=== PATIENT | male | born 1950 | race Caucasian/White ===

== ENCOUNTER 2017-11-18 12:02 | Observation (INO) ==
--- NOTE | 2017-11-18 14:04 | Emergency Department Note ---
Disposition Clinical Impression: Ascites of liver Liver failure Qualifiers: Liver failure chronicity: unspecified chronicity Hepatic coma status: without hepatic coma Qualified Code(s): K72.90 - Hepatic failure, unspecified without coma Right otitis media Qualifiers: Otitis media type: suppurative Chronicity: acute Recurrence: not specified as recurrent Spontaneous tympanic membrane rupture: without spontaneous rupture Qualified Code(s): H66.001 - Acute suppurative otitis media without spontaneous rupture of ear drum, right ear Disposition: Admitted As Inpatient Condition: Serious Referrals: Delano Haro MD [Partnered Physician] - Forms: ED Satisfaction Letter, Work/School Release Time of Disposition: 17:42 Abdominal Pain HPI - General Chief Complaint: ED Abdominal Pain Stated Complaint: abnormal xray Time Seen by Provider: 11/18/17 12:51 Source: patient Mode of arrival: ambulatory Limitations: no limitations Nursing Notes Reviewed: Yes Vital Signs Reviewed: Yes - History of Present Illness HPI Narrative: 66-year-old male presents complaining of abdominal pain and distention, states his 3 of 10 diffuse abdominal pain, shortness of breath and leg swelling. He also complains of itching, hemorrhoids, and right ear pain. He was diagnosed at the urgent care with a right-sided otitis, they are concerned about his abdominal pain and distention states that him to the ER for further evaluation, he has no known history of hepatitis, drink in his youth but states that he only has a beer occasionally every couple weeks, patient denies history of liver failure, patient states he does take Tylenol 2-3 650 mg extra strength daily for back pain. She denies melena, he has had some intermittent bleeding with hemorrhoids, patient states that his abdominal pain so she was some nausea , feels like his abdomen is pushing on his lungs, he never had a paracentesis ever had abdominal surgery in the past. Pt Subjective Complaint: abdominal pain Onset (ago): week(s) Consistency: intermittent Location: diffuse Pain Severity: moderate Pain Scale: 7 Quality: cramping, fullness Radiation: none Improves with: nothing Worsens with: nothing Associated symptoms: Reports: nausea, diarrhea. Denies: vomiting, fever, chills , dysuria, hematemesis, hematochezia, melena Treatments prior to arrival: none - Related Data Home Medications Medication Instructions Recorded Confirmed Acarbose [Precose] 50 mg PO BID 11/18/17 11/18/17 Ezetimibe/Simvastatin [Vytorin 1 each PO DAILY 11/18/17 11/18/17 10-40 mg Tablet] Lisinopril [Zestril] 10 mg PO DAILY 11/18/17 11/18/17 Pioglitazone HCl [Pioglitazone HCl] 30 mg PO DAILY 11/18/17 11/18/17 metFORMIN 11/18/17 Allergies Allergy/AdvReac Type Severity Reaction Status Date / Time No Known Allergies Allergy Verified 11/18/17 12:07 All systems ED: reviewed and negative except as stated. Review of Systems: As Per HPI Constitutional: Denies: fever, chills Eyes: Denies: eye pain ENT ED: Denies: ear pain Cardiovascular: Denies: chest pain, palpitations Respiratory: Denies: cough, dyspnea Gastrointestinal: Reports: as per HPI, abdominal pain, nausea, diarrhea. Denies : vomiting, hematemesis Genitourinary: Denies: urgency, dysuria Musculoskeletal: Denies: back pain, neck pain Integumentary: Reports: as per HPI, pruritus. Denies: rash, abrasion Abdominal Pain PMH - Past Medical History Medical history: Reports: diabetes, hyperlipidemia, hypertension, other Male Surgical History: Reports: no surgical history Psychiatric history: Reports: no psych history - Social History Smoking status: Never smoker Alcohol use: Reports: none Physical Exam Constitutional: alert and oriented, in NAD, vital signs reviewed and wnl HEENT: NCAT, sclera icteric right ear with a suppurative otitis media possible TM perforation difficult to visualize Neck: normal inspection, neck is supple, trachea midline Resp: normal chest inspection, CTA bilaterally, no resp distress CV: RRR, no m/g/r +3 pitting edema bilateral lower extremities GI: Severe abdominal distention with fluid wave, hepatosplenomegaly is present, although difficult to palpate, patient with diffuse mild tenderness to palpation. Back: normal inspection, negative CVA bilaterally, no tenderness to palpation Neuro: A&O3, no gross motor or sensory deficits bilaterally MSK: normal inspection, bilateral UE and LE with normal ROM Skin: Pruritus, mild jaundice - General Limitations: no limitations General appearance: alert, in no apparent distress Course Course Narrative: 64-year-old male with signs and symptoms of liver failure, cirrhosis, unknown etiology although likely possibly due to chronic Tylenol toxicity, patient has no current other etiologies could be hepatitis, he is a full workup CBC EP, hepatic panel, ammonia, coagulation studies. - Reevaluation(s) Reevaluation #1: His lab work is surprisingly unremarkable, he has normal bilirubin, but he complains of pruritus, the patient also had evidence of a right otitis we will start him on Augmentin, given his concerning findings, for severe abdominal ascites, esophageal varices, he likely has liver failure, plan is for paracentesis, diagnostic and therapeutic with interventional radiology admission to medicine service I spoke with the GI physician Dr. Aparicio who agrees to consult on the patient's care. Plan for admission to hospital follow paracentesis results. Time: 17:40 Reevaluation #2: Admitted to Dr Hsu Vital Signs Temperature 98.2 F 11/18/17 12:04 Pulse Rate 89 11/18/17 12:04 Respiratory Rate 18 11/18/17 12:04 Blood Pressure 163/75 11/18/17 12:04 O2 Sat by Pulse Oximetry 100 11/18/17 12:04 Temperature 98.2 F 11/18/17 12:04 Pulse Rate 88 11/18/17 16:57 Respiratory Rate 18 11/18/17 12:04 Blood Pressure 150/90 11/18/17 16:57 O2 Sat by Pulse Oximetry 98 11/18/17 16:57 Oxygen Delivery Oxygen Delivery Room Air Abdominal Pain - MDM Narrative Medical decision making narrative: 66-year-old male with unknown liver failure, severe abdominal ascites needs paracentesis, further workup and inpatient setting likely will need hepatitis profile, added acetaminophen level, although he has chronic use since likely be low he only took 2 pills earlier this morning. I recommended no more acetaminophen, Augmentin for the ear infection, admission for possible paracentesis and further studies GI consultation as further recommendations GI physician will see the patient inpatient further workup by hospitalist - Differential Diagnosis Differential Diagnosis: Likely: abdominal pain non-specific, acute appendicitis , calculus of kidney, constipation, diverticulitis, diverticulosis - Medical Records Medical records reviewed: Yes I reviewed the patient's medical records. - Lab Data Lab results reviewed: Yes I reviewed the patient's lab results. Result diagrams: 11/18/17 14:10 11/18/17 14:10 Lab Results 11/18/17 11/18/17 11/18/17 Range/Units 14:10 14:10 14:10 WBC 3.0 L (4.3-11.1) K/mcL RBC 3.51 L (4.19-5.50) M/mcL Hgb 9.9 L (12.9-16.9) g/dL Hct 32.7 L (37.5-50.1) % MCV 93.2 (83.0-100.0) fL MCH 28.2 (28.0-33.3) pg MCHC 30.3 L (31.6-35.5) g/dL RDW 16.0 H (11.5-14.5) % Plt Count 81 L (140-400) K/mcL MPV 10.5 (9.4-12.4) fL Immature Gran % 0.3 (0-4) % Seg Neutrophils % 75.9 % Lymphocytes % 11.7 % Monocytes % 8.4 % Eosinophils % 3.0 % Basophils % 0.7 % Neutrophils # 2.3 (1.6-8.9) K/mcL Lymphocytes # 0.4 L (0.6-4.6) K/mcL Monocytes # 0.3 (0.0-1.3) K/mcL Eosinophils # 0.1 (0.0-0.6) K/mcL Basophils # 0.0 (0.0-0.2) K/mcL Platelet Estimate Slight Decrease L (Normal) PT 12.2 H (9.4-12.1) Seconds INR 1.1 APTT 29.3 (26.0-36.0) Seconds Sodium 141 (136-145) mEq/L Potassium 4.1 (3.5-5.1) mEq/L Chloride 107 (98-107) mEq/L Carbon Dioxide 28 (23-29) mEq/L BUN 20 (8-23) mg/dL Creatinine 0.84 (0.70-1.30) mg/dL Est GFR ( Amer) > 60 (> 60) Est GFR (Non-Af Amer) > 60 (> 60) BUN/Creatinine Ratio 24 (6-26) Glucose 203 H (70-105) mg/dL Calculated Osmolality 300 (280-300) Calcium 8.9 (8.6-10.3) mg/dL Total Bilirubin 0.7 (0.3-1.0) mg/dL Direct Bilirubin 0.2 (0.0-0.2) mg/dL Indirect Bilirubin 0.5 (0.0-1.2) mg/dL AST 39 (13-39) Units/L ALT 25 (7-52) Units/L Alkaline Phosphatase 94 (34-104) Units/L Ammonia (16-53) mcmol/L Serum Total Protein 6.7 (6.4-8.9) g/dL Albumin 3.4 L (3.5-5.7) g/dL Globulin 3.3 (2.4-3.5) g/dL Albumin/Globulin Ratio 1.0 L (1.1-2.2) Lipase 35 (11-82) Units/L Urine Color (Yellow) Urine Clarity (Clear) Urine pH (5.0-8.0) pH Units Ur Specific [place] (1.010-1.025) Urine Protein (Neg-Trace) mg/dL Urine Glucose (UA) (Normal) mg/dL Urine Ketones (Negative) mg/dL Urine Blood (Negative) Urine Nitrite (Negative) Urine Bilirubin (Negative) Urine Urobilinogen (Normal) mg/dL Ur Leukocyte Esterase (Negative) Urine Microscopic RBC (0-3) per hpf Urine Microscopic WBC (0-3) per hpf Ur Squamous Epith Cells (None-Few) per lpf Ur Culture Indicated? (NO) 11/18/17 11/18/17 Range/Units 14:10 14:20 WBC (4.3-11.1) K/mcL RBC (4.19-5.50) M/mcL Hgb (12.9-16.9) g/dL Hct (37.5-50.1) % MCV (83.0-100.0) fL MCH (28.0-33.3) pg MCHC (31.6-35.5) g/dL RDW (11.5-14.5) % Plt Count (140-400) K/mcL MPV (9.4-12.4) fL Immature Gran % (0-4) % Seg Neutrophils % % Lymphocytes % % Monocytes % % Eosinophils % % Basophils % % Neutrophils # (1.6-8.9) K/mcL Lymphocytes # (0.6-4.6) K/mcL Monocytes # (0.0-1.3) K/mcL Eosinophils # (0.0-0.6) K/mcL Basophils # (0.0-0.2) K/mcL Platelet Estimate (Normal) PT (9.4-12.1) Seconds INR APTT (26.0-36.0) Seconds Sodium (136-145) mEq/L Potassium (3.5-5.1) mEq/L Chloride (98-107) mEq/L Carbon Dioxide (23-29) mEq/L BUN (8-23) mg/dL Creatinine (0.70-1.30) mg/dL Est GFR ( Amer) (> 60) Est GFR (Non-Af Amer) (> 60) BUN/Creatinine Ratio (6-26) Glucose (70-105) mg/dL Calculated Osmolality (280-300) Calcium (8.6-10.3) mg/dL Total Bilirubin (0.3-1.0) mg/dL Direct Bilirubin (0.0-0.2) mg/dL Indirect Bilirubin (0.0-1.2) mg/dL AST (13-39) Units/L ALT (7-52) Units/L Alkaline Phosphatase (34-104) Units/L Ammonia 33 (16-53) mcmol/L Serum Total Protein (6.4-8.9) g/dL Albumin (3.5-5.7) g/dL Globulin (2.4-3.5) g/dL Albumin/Globulin Ratio (1.1-2.2) Lipase (11-82) Units/L Urine Color Yellow (Yellow) Urine Clarity Clear (Clear) Urine pH 7.5 (5.0-8.0) pH Units Ur Specific [place] 1.022 (1.010-1.025) Urine Protein 30 H (Neg-Trace) mg/dL Urine Glucose (UA) Normal (Normal) mg/dL Urine Ketones Trace H (Negative) mg/dL Urine Blood Large H (Negative) Urine Nitrite Negative (Negative) Urine Bilirubin Negative (Negative) Urine Urobilinogen Normal (Normal) mg/dL Ur Leukocyte Esterase Trace H (Negative) Urine Microscopic RBC 15-30 H (0-3) per hpf Urine Microscopic WBC 3-5 H (0-3) per hpf Ur Squamous Epith Cells Few (None-Few) per lpf Ur Culture Indicated? YES A (NO) - Radiology Data Radiology results reviewed: Yes I reviewed the patient's radiology results. Abdomen/Pelvis CT 11/18/17 14:53 IMPRESSION: Cirrhotic liver morphology with features of portal venous hypertension, including large volume abdominal ascites, mesenteric edema, portosystemic collaterals (including paraesophageal and esophageal varices), marked splenomegaly and generalized soft tissue edema. Normal gallbladder and bile ducts. Diverticulosis without evidence of diverticulitis. Left nephrolithiasis. No right nephrolithiasis or evidence of obstructive uropathy. A 6 mm solid nodule in the right lower lobe, outside the field of view on comparison exams from 2006. Recommend dedicated CT chest for further evaluation. D/ / 11/18/2017 15:41:54 Pedro Iyer / Rachel Watson Interpreting Provider: Pedro Iyer
--- NOTE | 2017-11-18 14:16 | Emergency Department Note ---
START Narrative - START START: I examined this patient and my medical decision-making was reviewed with the Resident Physician. I agree with the documented findings, disposition and treatment plan as described except to the extent set forth below. 66-year-old male presents emergency room for abdominal distention. ongoing for many months. Seems to be getting worse. Patient denies any history of this in the past. He denies any liver problems. pt is a known diabetic. on diabetic meds. no fevers. pt will need to be worked up for this hepatosplenomegaly. ct scan, labs,
[2017-11-18 14:22] LABS: Basophils % 0.7 %; Eosinophils # 0.1 K/mcL (0.0-0.6); Hematocrit 32.7 % (37.5-50.1); Hemoglobin 9.9 g/dL (12.9-16.9); Immature Granulocytes % 0.3 % (0-4); Lymphocytes # 0.4 K/mcL (0.6-4.6); Lymphocytes % 11.7 %; Mean Corpuscular HGB Conc 30.3 g/dL (31.6-35.5); Mean Corpuscular Hemoglobin 28.2 pg (28.0-33.3); Mean Corpuscular Volume 93.2 fL (83.0-100.0); Mean Platelet Volume 10.5 fL (9.4-12.4); Monocytes # 0.3 K/mcL (0.0-1.3); Monocytes % 8.4 %; Neutrophils # 2.3 K/mcL (1.6-8.9); Platelet Count 81 K/mcL (140-400); Red Blood Count 3.51 M/mcL (4.19-5.50); Segmented Neutrophils % 75.9 %
[2017-11-18 14:23] LABS: Platelet Estimate Slight Decrease (Normal)
[2017-11-18 14:27] LABS: INR 1.1; Prothrombin Time 12.2 Seconds (9.4-12.1)
[2017-11-18 14:29] LABS: Activated Partial Thrombo Time 29.3 Seconds (26.0-36.0)
[2017-11-18 14:47] LABS: Bilirubin,Urine Negative (Negative); Clarity,Urine Clear (Clear); Color,Urine Yellow (Yellow); Glucose,Urine (UA) Normal (Normal); Ketones,Urine Trace mg/dL (Negative); Specific Gravity,Urine 1.022 (1.010-1.025)
[2017-11-18 14:48] LABS: Blood,Urine Large (Negative); Leukocyte Esterase,Urine Trace (Negative); Nitrite,Urine Negative (Negative); PH,Urine 7.5 pH Units (5.0-8.0); Protein,Urine 30 mg/dL (Neg-Trace); Urobilinogen,Urine Normal (Normal)
[2017-11-18 14:51] LABS: BUN/Creatinine Ratio 24 (6-26); Bilirubin,Direct 0.2 mg/dL (0.0-0.2); Bilirubin,Total 0.7 mg/dL (0.3-1.0); Blood Urea Nitrogen 20 mg/dL (8-23); Calcium 8.9 mg/dL (8.6-10.3); Carbon Dioxide 28 mEq/L (23-29); Chloride 107 mEq/L (98-107); Glucose 203 mg/dL (70-105); Osmolality,Calculated 300 (280-300); Potassium 4.1 mEq/L (3.5-5.1); Sodium 141 mEq/L (136-145); eGFR For African Americans > 60 (> 60); eGFR For Non-African Americans > 60 (> 60)
[2017-11-18] MEDS: 0.9 % Sodium Chloride 1,000 ML IVC SCH ×2 (14:51→20:31)
[2017-11-18 14:52] LABS: Alanine Aminotransferase 25 Units/L (7-52); Albumin 3.4 g/dL (3.5-5.7); Alkaline Phosphatase 94 Units/L (34-104); Aspartate Amino Transferase 39 Units/L (13-39); Bilirubin,Indirect 0.5 mg/dL (0.0-1.2); Globulin 3.3 g/dL (2.4-3.5); Lipase 35 Units/L (11-82); Total Protein 6.7 g/dL (6.4-8.9)
[2017-11-18 15:09] LABS: RBC,Urine 15-30 per hpf (0-3)
[2017-11-18 15:10] LABS: Squamous Epithelial Cell,Urine Few per lpf (None-Few)
--- NOTE | 2017-11-18 18:04 | Internal Med History&Physical ---
Date of Encounter: 11/18/17 Time of Encounter: 17:30 Assessment and Plan (1) Ascites of liver Current visit: Yes Status: Acute -In the ER, CT of the abdomen/pelvis showed cirrhotic liver morphology with features of portal venous hypertension, including large volume abdominal ascites , mesenteric edema, portosystemic collaterals (including paraesophageal and esophageal varices), marked splenomegaly and generalized soft tissue edema. -GI was contacted/consult by ER and by myself and will follow the patient during his stay. -IR was also consult by myself and will see patient on 11/19/17 for potential paracentesis. -Will start patient on spironolactone and furosemide (2) Right otitis media Current visit: Yes Status: Acute -Will continue Augmentin started in the ER Qualifiers: Otitis media type: suppurative Chronicity: acute Recurrence: not specified as recurrent Spontaneous tympanic membrane rupture: without spontaneous rupture Qualified Code(s): H66.001 - Acute suppurative otitis media without spontaneous rupture of ear drum, right ear (3) Diabetes Current visit: Yes Status: Acute -Continue home oral diabetic medications Qualifiers: Diabetes mellitus type: type 2 Qualified Code(s): E11.9 - Type 2 diabetes mellitus without complications (4) Benign essential HTN Current visit: Yes Status: Acute -Continue home medications (5) DVT prophylaxis Current visit: Yes Status: Acute -SCDs Internal Medicine - H&P: HPI Chief complaint: Increased abdominal girth Admitted From: Home Plans for Post Hospital Care: Home History of present illness: Patient is a 66-year-old male with past medical history significant for hypertension and diabetes who presents to the ER on 11/18/17 due to increased abdominal girth. Patient is a poor historian but reports of increased abdominal girth for approximately the last 3 months. In addition patient also reports of lower extremity bilateral edema which has been present for the last week. Patient woke up with abdominal discomfort this morning and decided come to the ER for evaluation. In the ER, CT of the abdomen/pelvis showed cirrhotic liver morphology with features of portal venous hypertension, including large volume abdominal ascites , mesenteric edema, portosystemic collaterals (including paraesophageal and esophageal varices), marked splenomegaly and generalized soft tissue edema. GI was contacted/consult by ER and by myself and will follow the patient during his stay. IR was also consult by myself and will see patient on 11/19/17 for potential paracentesis. Past Med Surg Social Fam HX - Past Medical History Medical history: diabetes, hyperlipidemia, hypertension, other Psychiatric history: no psych history - Social History Smoking Status: Never smoker Smokeless Tobacco Status: No Alcohol use: none Internal Medicine - H&P: Meds Acarbose [Precose] 50 mg PO BID 11/18/17 [History] Ezetimibe/Simvastatin [Vytorin 10-40 mg Tablet] 1 each PO DAILY 11/18/17 [ History] Lisinopril [Zestril] 10 mg PO DAILY 11/18/17 [History] Metformin HCl [Glucophage] 1,000 mg PO BID 11/18/17 [History] Pioglitazone HCl [Pioglitazone HCl] 30 mg PO DAILY 11/18/17 [History] 3 Allergy/AdvReac Type Severity Reaction Status Date / Time No Known Allergies Allergy Verified 11/18/17 12:07 All Systems PM: A 10-system review of systems was performed and is negative for pertinent findings except as documented above in the HPI. - Constitutional Vitals: Temp Pulse Resp BP Pulse Ox 98.2 F 88 18 150/90 98 11/18/17 12:04 11/18/17 16:57 11/18/17 12:04 11/18/17 16:57 11/18/17 16:57 General appearance: Present: A&O X 3, no acute distress - Head Head exam: Present: normocephalic - Eye Eye exam: Absent: scleral icterus - Respiratory Respiratory exam: Present: CTAB. Absent: accessory muscle use, rales, rhonchi, wheezes - Cardiovascular Cardiovascular exam: Present: RRR, +S1, +S2. Absent: diastolic murmur, gallop, rubs, systolic murmur - GI/Abdominal GI/Abdominal exam: Present: distended - Expanded Lower Extremities Exam Lower Leg exam: Present: swelling - Neurological Exam Neurological exam: Present: oriented X3 - Psychiatric Psychiatric exam: Present: normal mood - Skin Skin exam: Present: normal color Internal Med - H&P Results - Labs CBC & Chem 7: 11/18/17 14:10 11/18/17 14:10 Labs: Short CBC 11/18/17 Range/Units 14:10 WBC 3.0 L (4.3-11.1) K/mcL Hgb 9.9 L (12.9-16.9) g/dL Hct 32.7 L (37.5-50.1) % Plt Count 81 L (140-400) K/mcL Neutrophils # 2.3 (1.6-8.9) K/mcL BMP 11/18/17 14:10 Sodium 141 Potassium 4.1 Chloride 107 Carbon Dioxide 28 BUN 20 Creatinine 0.84 Glucose 203 H Calcium 8.9 Liver Function 11/18/17 Range/Units 14:10 Total Bilirubin 0.7 (0.3-1.0) mg/dL Direct Bilirubin 0.2 (0.0-0.2) mg/dL AST 39 (13-39) Units/L ALT 25 (7-52) Units/L Alkaline Phosphatase 94 (34-104) Units/L Albumin 3.4 L (3.5-5.7) g/dL Urine 11/18/17 Range/Units 14:20 Urine Color Yellow (Yellow) Urine Clarity Clear (Clear) Urine pH 7.5 (5.0-8.0) pH Units Ur Specific [place] 1.022 (1.010-1.025) Urine Protein 30 H (Neg-Trace) mg/dL Urine Glucose (UA) Normal (Normal) mg/dL - Impressions ITS Impressions Abdomen/Pelvis CT 11/18/17 14:53 IMPRESSION: Cirrhotic liver morphology with features of portal venous hypertension, including large volume abdominal ascites, mesenteric edema, portosystemic collaterals (including paraesophageal and esophageal varices), marked splenomegaly and generalized soft tissue edema. Normal gallbladder and bile ducts. Diverticulosis without evidence of diverticulitis. Left nephrolithiasis. No right nephrolithiasis or evidence of obstructive uropathy. A 6 mm solid nodule in the right lower lobe, outside the field of view on comparison exams from 2006. Recommend dedicated CT chest for further evaluation. D/ / 11/18/2017 15:41:54 Pedro Iyer / Rachel Watson Interpreting Provider: Pedro Iyer
[2017-11-18] MEDS ORDERED: Naloxone 0.4 MG/ML INJ IVP PRN (18:08)
[2017-11-18] MEDS ORDERED: Dextrose Gel 15 GM/37.5 ML TUBE PO PRN (18:14)
[2017-11-18] MEDS ORDERED: *HR* Dextrose 50 % in Water (Syg) 50 ML SYRINGE IVP PRN (18:14)
[2017-11-18] MEDS ORDERED: D5% in Water 1,000 ML IVC PRN (20:49)
[2017-11-18] MEDS ORDERED: FLUARIX QUAD 2017-18 36MOS UP/PF 0.5 ML SYRINGE IM ONE (21:16)
[2017-11-19] MEDS ORDERED: Ibuprofen 400 MG TABLET PO PRN (00:46)
[2017-11-19] MEDS: Insulin LISPRO 300 UNITS/3 ML VIAL SQ SCH ×4 (01:08→18:49)
[2017-11-19 04:46] LABS: INR 1.2; Prothrombin Time 13.1 Seconds (9.4-12.1)
[2017-11-19 04:48] LABS: Red Cell Distribution Width 15.9 % (11.5-14.5)
[2017-11-19 04:49] LABS: Activated Partial Thrombo Time 28.4 Seconds (26.0-36.0)
[2017-11-19 04:50] LABS: Basophils % 1.2 %; Eosinophils # 0.1 K/mcL (0.0-0.6); Hematocrit 28.5 % (37.5-50.1); Hemoglobin 8.8 g/dL (12.9-16.9); Lymphocytes # 0.3 K/mcL (0.6-4.6); Lymphocytes % 13.5 %; Mean Corpuscular HGB Conc 30.9 g/dL (31.6-35.5); Mean Corpuscular Hemoglobin 28.4 pg (28.0-33.3); Mean Corpuscular Volume 91.9 fL (83.0-100.0); Mean Platelet Volume 12.3 fL (9.4-12.4); Monocytes # 0.3 K/mcL (0.0-1.3); Neutrophils # 1.7 K/mcL (1.6-8.9); Nucleated Red Blood Cells 1.6 /100 WBC (0); Segmented Neutrophils % 69.3 %
[2017-11-19 04:59] LABS: Platelet Count 62 K/mcL (140-400)
[2017-11-19 05:09] LABS: Alanine Aminotransferase 19 Units/L (7-52); Albumin 2.7 g/dL (3.5-5.7); Albumin/Globulin Ratio 0.9 (1.1-2.2); Alkaline Phosphatase 76 Units/L (34-104); Aspartate Amino Transferase 30 Units/L (13-39); BUN/Creatinine Ratio 19 (6-26); Bilirubin,Total 0.5 mg/dL (0.3-1.0); Blood Urea Nitrogen 15 mg/dL (8-23); Calcium 8.1 mg/dL (8.6-10.3); Carbon Dioxide 25 mEq/L (23-29); Chloride 110 mEq/L (98-107); Glucose 108 mg/dL (70-105); Osmolality,Calculated 291 (280-300); Potassium 3.9 mEq/L (3.5-5.1); Sodium 140 mEq/L (136-145); Total Protein 5.7 g/dL (6.4-8.9); eGFR For African Americans > 60 (> 60); eGFR For Non-African Americans > 60 (> 60)
[2017-11-19] MEDS: 0.9 % Sodium Chloride 1,000 ML IVC SCH (06:30)
[2017-11-19] MEDS: Furosemide 40 MG TABLET PO SCH (07:57)
[2017-11-19] MEDS ORDERED: SIMVASTATIN PO SCH (09:00)
[2017-11-19] MEDS ORDERED: EZETIMIBE PO SCH (09:00)
--- NOTE | 2017-11-19 09:16 | IR Procedure Note ---
Date of procedure: 11/19/17 Consent Obtained: Written consent Timeout: Correct patient and procedure verified, Time out performed, Skin prep completed Local anesthetic: Lidocaine 1% Indications: Ascites Procedure Performed: Paracentesis Was there an sugar laboratory assistant present: Yes Box Shook Patcher: Syd Collins Estimated blood loss (cc): 0 Complications: None; Tolerated procedure well Specimen: Sample sent
--- NOTE | 2017-11-19 09:51 | Internal Med Progress Note ---
<Divine Sanchez - Last Filed: 11/19/17 13:08> Date of Encounter: 11/19/17 Time of Encounter: 09:50 - Assessment and plan (1) Ascites of liver Current Visit: Yes Status: Acute Assessment and plan: Ascites of the liver may be secondary to past alcohol use (37yr ago drank 6- 12pk beer almost daily for about 10 years) also daily Tylenol use (extra strength Tylenol 9 tablets a day for years) CT Abd demonstrated cirrhotic liver morphology with features of portal venous hypertension, including large volume abdominal ascites, mesenteric edema, portosystemic collaterals (including paraesophageal and esophageal varices), marked splenomegaly and generalized soft tissue edema. Interventional radiology performed paracentesis he reports an improvement in abdominal pain after paracentesis afebrile, pancytopenia AST, ALT WNL Plan EGD today -G.I. consulted and following -interventional radiology consulted on paracentesis -continue spironolactone and lasix -monitor renal function -monitor electrolytes (2) Right otitis media Current Visit: Yes Status: Acute Assessment and plan: start rocephine for right otitis media (3) Diabetes Current Visit: Yes Status: Acute Assessment and plan: History of diabetes glucose 108 continue glucose checks continue low-dose sliding scale (4) Benign essential HTN Current Visit: Yes Status: Acute Assessment and plan: Blood pressure stable continue home lisinopril (5) DVT prophylaxis Current Visit: Yes Status: Acute Assessment and plan: SCD ambulate TID - Subjective Interval history: Setting up comfortably in bed. He reported paracentesis this morning and his abdomen feels much better. He reports that he still has lower extremity edema especially in his feet. He denies fever, chills, chest pain, shortness of breath, nausea, vomiting. Reports that he is to get his EGD today. - Constitutional Vitals: Temp Pulse Resp BP Pulse Ox 98.9 F 82 14 121/68 95 11/19/17 07:29 11/19/17 07:29 11/19/17 07:29 11/19/17 07:29 11/19/17 07:29 General appearance: Present: A&O X 3, no acute distress Exam: Gen.: Vitals noted. No acute distress. AAOx3 HEENT: oropharynx clear, Normocephalic, atraumatic Neck: Supple. No adenopathy. Cardiac: RRR, no murmur, +S1/S2 Pulmonary: CTA bilaterally, no wheezes, rales or rhonchi, equal chest expansion Abdomen: soft, minimal right upper quadrant tender, Bowel sounds noted, no guarding Extremities: +1 BLE pitting pedal edema, nontender calf, no cyanosis or clubbing Neuro: A&Ox3, moves all extremities, no focal deficits Psych: Appropriate mood and behavior Internal Medicine: Result - Labs CBC & Chem 7: 11/19/17 03:55 11/19/17 03:55 Labs: Short CBC 11/19/17 Range/Units 03:55 WBC 2.5 L (4.3-11.1) K/mcL Hgb 8.8 L (12.9-16.9) g/dL Hct 28.5 L (37.5-50.1) % Plt Count 62 L (140-400) K/mcL Neutrophils # 1.7 (1.6-8.9) K/mcL BMP 11/19/17 03:55 Sodium 140 Potassium 3.9 Chloride 110 H Carbon Dioxide 25 BUN 15 Creatinine 0.79 Glucose 108 H Calcium 8.1 L Liver Function 11/19/17 Range/Units 03:55 Total Bilirubin 0.5 (0.3-1.0) mg/dL AST 30 (13-39) Units/L ALT 19 (7-52) Units/L Alkaline Phosphatase 76 (34-104) Units/L Albumin 2.7 L (3.5-5.7) g/dL - ABG Interpretation ABG results: PT/INR, D-dimer PT 13.1 Seconds (9.4-12.1) H 11/19/17 03:55 Consult Discharge Plan - Plan Referrals: NONE,PCP [Primary Care Provider] - <Kavon Menendez H - Last Filed: 11/19/17 13:13> Date of Encounter: 11/19/17 - Constitutional Vitals: Temp Pulse Resp BP Pulse Ox 98.1 F 77 14 137/68 98 11/19/17 11:19 11/19/17 11:19 11/19/17 11:19 11/19/17 11:19 11/19/17 11:19 Internal Medicine: Result - Labs CBC & Chem 7: 11/19/17 03:55 02/01/18 03:55 Labs: Short CBC 11/19/17 Range/Units 03:55 WBC 2.5 L (4.3-11.1) K/mcL Hgb 8.8 L (12.9-16.9) g/dL Hct 28.5 L (37.5-50.1) % Plt Count 62 L (140-400) K/mcL Neutrophils # 1.7 (1.6-8.9) K/mcL BMP 11/19/17 03:55 Sodium 140 Potassium 3.9 Chloride 110 H Carbon Dioxide 25 BUN 15 Creatinine 0.79 Glucose 108 H Calcium 8.1 L Liver Function 11/19/17 Range/Units 03:55 Total Bilirubin 0.5 (0.3-1.0) mg/dL AST 30 (13-39) Units/L ALT 19 (7-52) Units/L Alkaline Phosphatase 76 (34-104) Units/L Albumin 2.7 L (3.5-5.7) g/dL - ABG Interpretation ABG results: PT/INR, D-dimer PT 13.1 Seconds (9.4-12.1) H 11/19/17 03:55 - Impressions Impressions Paracentesis Ultrasound 11/19/17 00:00 IMPRESSION: 1. Successful ultrasound guided paracentesis. D/ / Ronan Floyd MD / Ronan Floyd MD Interpreting Provider: Ronan Floyd MD - Attending Attestation Paracenteses, 6100 mL were removed Right otitis media, start Rocephin EGD pending I examined this patient and my medical decision-making was reviewed with the Resident Physician. I agree with the documented findings, disposition and treatment plan as described except to the extent set forth below.
[2017-11-19 10:51] LABS: Appearance of Peritoneal Fl CLEAR (Clear)
[2017-11-19 10:56] LABS: Hepatitis B Surface Antigen Nonreactive (Nonreactive)
[2017-11-19 11:09] LABS: RBC,Peritoneal Fluid < 0.002 M/mcL
[2017-11-19 11:23] LABS: Amylase,Peritoneal Fluid 10 Units/L (No Ref Range); Glucose,Peritoneal Fluid 123 mg/dL (No Ref Range); LDH,Peritoneal Fluid 44 Units/L (No Ref Range); Total Protein,Peritoneal Fluid < 3.0 g/dL (No Ref Range)
[2017-11-19 11:51] LABS: % Iron Saturation 14 % (20-55); Iron 51 mcg/dL (65-175); Transferrin 268 mg/dL (203-362)
--- NOTE | 2017-11-19 13:07 | Gastroenterology Consult Note ---
<Alicja Vega - Last Filed: 11/19/17 16:42> Date of Encounter: 11/19/17 Time of Encounter: 10:50 - Assessment and plan (1) Cirrhosis Current Visit: Yes Status: Acute Assessment and plan: 66 year old male who presents with new onset ascites. LFTs are normal but albumin is low, and platelets are low. He denies alcohol abuse. Will order hepatitis workup. He is status post paracentesis. Qualifiers: Hepatic cirrhosis type: unspecified hepatic cirrhosis Ascites presence: with ascites Qualified Code(s): K74.60 - Unspecified cirrhosis of liver - Time Spent With Patient Total time spent is greater than 50% in coordination of care (as documented) at patient's floor/unit and/or counseling patient: GI History of Present Illness - Data of Consult Patient: new to practice Consult date: 11/19/17 Requesting Physician: Kavon Menendez - Consult Narrative Reason for consult: cirrhosis History of present illness: Mr Lee is a 66-year-old male with past medical history significant for hypertension and diabetes. He presents to the ER on 11/18/17 due to increased abdominal girth for approximately the last 3 months. He states he just thought his abdomen was bloated due to something he ate and it usually went away. He also complains of bilateral lower extremity edema which has been present for the last week. Patient woke up with abdominal discomfort this morning and decided come to the ER for evaluation. In the ER, CT of the abdomen/pelvis showed cirrhotic liver morphology with features of portal venous hypertension, including large volume abdominal ascites, mesenteric edema, portosystemic collaterals (including paraesophageal and esophageal varices), marked splenomegaly and generalized soft tissue edema. Labs in ER show a Hgb 8.8, platelet count of 62, albumin 2.7, sodium 140 creatinine 0.79 iron 51 total bili 0.5 AST 30 ALT 19 alkaline phosphatase 76 albumin 2.7. He had a paracentesis this morning with removal of 6100 ml. He denies any previous liver disease or family history of liver disease. He states he drinks beer only on occasion 2-3 times a month. He reports heavier drinking in his 20s. He denies any tylenol use. He denies history of hepatitis. EGD: unsure Colonoscopy: denies NSAIDS: motrin anticoagulants: denies Past Med Surg Social Fam HX - Past Medical History Medical history: diabetes, hyperlipidemia, hypertension, other Psychiatric history: no psych history - Social History Smoking Status: Never smoker Smokeless Tobacco Status: No Alcohol use: none Drug use: none - Family History Mother History Unknown: Yes Adopted: [place]: Kyra Lee Family Member Ethnicity: Non- Living Status: Age at : 68 Hx Family Neurologic Disorders: Yes (CVA) Review of Systems: GI: as per [place] GENERAL: denies fever, ore chills EYES: denies yellow discoloration ENT: denies pain with swallowing or difficulty swallowing CARDIO: denies chest pain, palpitations RESP: Shortness of breath with exertion : denies change in color of urine NEURO: weakness HEME: Denies any bruising MS: chronic joint and back pain DERM: denies rash or itching PSYCH: Denies history of anxiety or depression - Constitutional Vitals: Temp Pulse Resp BP Pulse Ox 98.1 F 77 14 137/68 98 11/19/17 11:19 11/19/17 11:19 11/19/17 11:19 11/19/17 11:19 11/19/17 11:19 Exam: CONSTITUTIONAL:~alert, no acute distress.~HEAD:~normocephalic.~EYES:~no jaundice.~NECK:~no obvious swelling.~HEART:~regular rate and rhythm, no murmurs. ~LUNGS:~bilateral good air entry.~ABDOMEN:~ distended, soft, non tender, no masses palpable, splenomegaly~RECTAL EXAM:~Deferred.~EXTREMITIES:~no clubbing, cyanosis or edema.~SKIN:~no stigmata of chronic liver disease.~NEUROLOGIC:~no obvious focal defect.~~~~ Results - Labs CBC & Chem 7: 11/19/17 03:55 11/19/17 03:55 Labs: Last Result Calcium 8.1 mg/dL (8.6-10.3) L 11/19/17 03:55 Iron 51 mcg/dL (65-175) L 11/19/17 10:08 % Saturation 14 % (20-55) L 11/19/17 10:08 Transferrin 268 mg/dL (203-362) 11/19/17 10:08 Peritoneal Appearance CLEAR (Clear) 11/19/17 09:20 Peritoneal Volume 50.0 mL 11/19/17 09:20 Peritoneal RBC < 0.002 M/mcL (0.000-0.002) 11/19/17 09:20 Periton Tot Nuc Cells 172 TNC/mcL (0-300) 11/19/17 09:20 Periton Band Neuts Test Not Performed 11/19/17 09:20 Periton Lymphocytes % 88.0 % 11/19/17 09:20 Periton Monocytes % 9.0 % 11/19/17 09:20 Periton Other Cells % 3.0 % 11/19/17 09:20 Peritoneal Tot Protein < 3.0 g/dL (No Ref Range) 11/19/17 09:20 Peritoneal LDH 44 Units/L (No Ref Range) 11/19/17 09:20 Peritoneal Glucose 123 mg/dL (No Ref Range) 11/19/17 09:20 Peritoneal Amylase 10 Units/L (No Ref Range) 11/19/17 09:20 Entire Visit Hgb 8.8 g/dL (12.9-16.9) L 11/19/17 03:55 Hct 28.5 % (37.5-50.1) L 11/19/17 03:55 PT 13.1 Seconds (9.4-12.1) H 11/19/17 03:55 Total Bilirubin 0.5 mg/dL (0.3-1.0) 11/19/17 03:55 AST 30 Units/L (13-39) 11/19/17 03:55 ALT 19 Units/L (7-52) 11/19/17 03:55 Ammonia 33 mcmol/L (16-53) 11/18/17 14:10 Lipase 35 Units/L (11-82) 11/18/17 14:10 Acetaminophen 1.0 mcg/mL (10-30) L 11/18/17 14:10 - ABG ABG results: PT/INR, D-dimer PT 13.1 Seconds (9.4-12.1) H 11/19/17 03:55 - Impressions Impressions Paracentesis Ultrasound 11/19/17 00:00 IMPRESSION: 1. Successful ultrasound guided paracentesis. D/ / Ronan Floyd MD / Ronan Floyd MD Interpreting Provider: Ronan Floyd MD Consult Discharge Plan - Plan Referrals: NONE,PCP [Primary Care Provider] - <Kelly Aparicio - Last Filed: 11/19/17 23:07> Date of Encounter: 11/19/17 Time of Encounter: 13:00 - Time Spent With Patient Total time spent is greater than 50% in coordination of care (as documented) at patient's floor/unit and/or counseling patient: GI History of Present Illness - Data of Consult Requesting Physician: Kavon Menendez - Consult Narrative History of present illness: Mr. Lee is a 66 year old male - Constitutional Vitals: Temp Pulse Resp BP Pulse Ox 99.0 F 90 14 130/66 95 11/19/17 20:08 11/19/17 20:08 11/19/17 20:08 11/19/17 20:08 11/19/17 20:08 Results - Labs CBC & Chem 7: 11/19/17 03:55 11/19/17 03:55 Labs: Last Result Calcium 8.1 mg/dL (8.6-10.3) L 11/19/17 03:55 Iron 51 mcg/dL (65-175) L 11/19/17 10:08 % Saturation 14 % (20-55) L 11/19/17 10:08 Transferrin 268 mg/dL (203-362) 11/19/17 10:08 Ferritin 68 ng/ml (20-250) 11/19/17 15:56 Peritoneal Appearance CLEAR (Clear) 11/19/17 09:20 Peritoneal Volume 50.0 mL 11/19/17 09:20 Peritoneal RBC < 0.002 M/mcL (0.000-0.002) 11/19/17 09:20 Periton Tot Nuc Cells 172 TNC/mcL (0-300) 11/19/17 09:20 Periton Band Neuts Test Not Performed 11/19/17 09:20 Periton Lymphocytes % 88.0 % 11/19/17 09:20 Periton Monocytes % 9.0 % 11/19/17 09:20 Periton Other Cells % 3.0 % 11/19/17 09:20 Peritoneal Tot Protein < 3.0 g/dL (No Ref Range) 11/19/17 09:20 Peritoneal LDH 44 Units/L (No Ref Range) 11/19/17 09:20 Peritoneal Glucose 123 mg/dL (No Ref Range) 11/19/17 09:20 Peritoneal Amylase 10 Units/L (No Ref Range) 11/19/17 09:20 Entire Visit Hgb 8.8 g/dL (12.9-16.9) L 11/19/17 03:55 Hct 28.5 % (37.5-50.1) L 11/19/17 03:55 PT 13.1 Seconds (9.4-12.1) H 11/19/17 03:55 Ferritin 68 ng/ml (20-250) 11/19/17 15:56 Total Bilirubin 0.5 mg/dL (0.3-1.0) 11/19/17 03:55 AST 30 Units/L (13-39) 11/19/17 03:55 ALT 19 Units/L (7-52) 11/19/17 03:55 Ammonia 33 mcmol/L (16-53) 11/18/17 14:10 Lipase 35 Units/L (11-82) 11/18/17 14:10 Acetaminophen 1.0 mcg/mL (10-30) L 11/18/17 14:10 - ABG ABG results: PT/INR, D-dimer PT 13.1 Seconds (9.4-12.1) H 11/19/17 03:55 - Impressions Impressions Paracentesis Ultrasound 11/19/17 00:00 IMPRESSION: 1. Successful ultrasound guided paracentesis. D/ / Ronan Floyd MD / Ronan Floyd MD Interpreting Provider: Ronan Floyd MD - Attending Attestation I examined this patient and my medical decision-making was reviewed with the INVESTMENT EXECUTIVE. I agree with the documented findings, disposition and treatment plan as described except to the extent set forth below. Cirrhosis most prob alcoholic. r/o other causes. Now with ascites Rec: Lasix/aldactone 40/100 EGD to r/o varices Labs to r/o other etiologies F/U Gi out pt
--- NOTE | 2017-11-19 14:01 | Anesthesia Evaluation PreOp ---
Date of Encounter: 11/19/17 Time of Encounter: 13:54 - Past History Planned Operation: EGD Cardiac History: HTN, Hyperlipidemia (maintained on Vytorin) Other Medical History: Hepatic (Liver failure, Cirrhosis w/ paracentesis today) , Diabetes Type II (maintained on Pioglitazone, metformin), Other (Suppurative Otitis media w/spontaneous TM rupture this admission) Anesthesia History: No Prior Anesthetic Complications, Past Anesthesia ( Pilonidal cyst) Alcohol Use: none Drug use: none Medications and Allergies Acarbose [Precose] 50 mg PO BID 11/18/17 [History] Ezetimibe/Simvastatin [Vytorin 10-40 mg Tablet] 1 each PO DAILY 11/18/17 [ History] Lisinopril [Zestril] 10 mg PO DAILY 11/18/17 [History] Metformin HCl [Glucophage] 1,000 mg PO BID 11/18/17 [History] Pioglitazone HCl [Pioglitazone HCl] 30 mg PO DAILY 11/18/17 [History] 3 Allergy/AdvReac Type Severity Reaction Status Date / Time No Known Allergies Allergy Verified 11/18/17 12:07 - Meds/Allergy Pre-op Review Medications Reviewed: Yes Allergies Reviewed: Yes Beta Blockers on Current Med List: No Anesthesia Results - Labs 11/19/17 03:55 11/19/17 03:55 Laboratory Results Impressions Abdomen/Pelvis CT 11/18/17 14:53 IMPRESSION: Cirrhotic liver morphology with features of portal venous hypertension, including large volume abdominal ascites, mesenteric edema, portosystemic collaterals (including paraesophageal and esophageal varices), marked splenomegaly and generalized soft tissue edema. Normal gallbladder and bile ducts. Diverticulosis without evidence of diverticulitis. Left nephrolithiasis. No right nephrolithiasis or evidence of obstructive uropathy. 6 mm solid nodule in the right lower lobe is outside the field of view on comparison exams from 2007. Recommend dedicated CT chest for further evaluation. D/ / 11/18/2017 15:41:54 Pedro Iyer / Rachel Watson Interpreting Provider: Pedro Iyer Paracentesis Ultrasound 11/19/17 00:00 IMPRESSION: 1. Successful ultrasound guided paracentesis. D/ / Ronan Floyd MD / Ronan Floyd MD Interpreting Provider: Ronan Floyd MD Laboratory Tests 11/19/17 03:55 PT 13.1 H INR 1.2 APTT 28.4 Anesthesia Exam Vital Signs Temp Pulse Resp BP Pulse Ox 11/19/17 13:15 98.6 F 80 20 139/71 97 11/19/17 11:19 98.1 F 77 14 137/68 98 11/19/17 07:29 98.9 F 82 14 121/68 95 11/19/17 04:13 98.6 F 79 16 123/57 95 11/19/17 01:06 98.5 F 78 16 117/69 98 11/18/17 19:22 98.5 F 78 16 117/68 11/18/17 18:53 97.7 F 79 16 165/75 100 11/18/17 18:18 16 153/94 11/18/17 16:57 88 150/90 98 11/18/17 15:35 88 155/85 97 11/18/17 14:53 83 146/87 98 Intake and Output 11/18/17 11/19/17 11/19/17 23:59 07:59 15:59 Intake Total 1240 / 1240 1000 / 1000 0 / 0 Output Total 800 / 800 425 / 425 800 / 800 Balance 440 / 440 575 / 575 -800 / -800 Intake: IV Fluids 1000 / 1000 1000 / 1000 0.9 % Sodium Chloride 1,000 ML 1000 / 1000 1000 / 1000 @ 100 mls/hr IVC .Q10H JENNA Rx#: [id number] Oral 240 / 240 0 / 0 0 / 0 Output: Urine 800 / 800 425 / 425 800 / 800 Other: Meal NPO Weight 82.645 kg 82.645 kg Blood Glucose* 193 105 136 Patient Weight 11/19/17 23:59 Weight 82.645 kg Height: 5'7" Weight: 182# BMI = 28.5 NPO (# of Hours): MNoc - HEENT Pupil (Motor): Pupils equal, EOMI Mallampati: I Teeth: Edentulous Oral Opening: Greater than 3 - INSTALL AND REPAIR TECHNICIAN LOC: Oriented INSTALL AND REPAIR TECHNICIAN Motor: Normal RUE, Normal LUE, Normal RLE, Normal LLE, Normal Face INSTALL AND REPAIR TECHNICIAN Sensory: Normal: RUE, LUE, RLE, LLE, Face - Cardiac Rhythm: Regular Murmur: None - Pulmonary Breath Sounds: bilateral Clear Respiratory Effort: Symmetrical Anesthesia Assess/Plan ASA Score: 4 (Cirrhosis/Liver Failure, DM, HTN,) Modified [place] Scale for Level of Consciousness: Cooperative, oriented, and tranquil Anesthetic Plan: General, MAC Monitoring Plan: Standard Monitors Anes Supervising Prov Stmt: Pt seen/evaluated, R&B discussed, questions answered and consent obtained. - MD Reagan
--- NOTE | 2017-11-19 14:30 | Anesthesia Evaluation Post Op ---
Date of Encounter: 11/19/17 Time of Encounter: 14:29 - Vital Signs Vital Signs: 3 Vital Signs Time 1430 BP 153/83 Pulse 99 Resp 20 O2 Sat 98 - Lungs Lungs: Clear Ascult./Percussion - Airway Airway: Non-obstructed - Cardiovascular Regular Rate - Mental Status Mental Status: Alert & Oriented, Answers Appropriately - Pain Pain Scale: 0 Pain Scale used: Numeric (1 - 10) - Nausea Vomiting Nausea Vomiting: Not Present - Hydration Hydration: NPO, Has not voided - Discharge PostOp Status: Transfer Patient to floor
[2017-11-19] MEDS ORDERED: Lidocaine -MPF 2% 2 ML VIAL ONE (14:33)
[2017-11-19] MEDS ORDERED: *HR* Propofol 200 MG/20 ML VIAL IVP ONE (14:33)
[2017-11-19] MEDS: cefTRIAXone 1,000 MG in Water for inj. (sterile) 10 ML IVP SCH (18:48)
[2017-11-20 04:11] LABS: Basophils % 0.7 %
[2017-11-20 04:13] LABS: Eosinophils # 0.1 K/mcL (0.0-0.6); Hematocrit 32.9 % (37.5-50.1); Hemoglobin 10.2 g/dL (12.9-16.9); Immature Granulocytes % 0.4 % (0-4); Lymphocytes # 0.5 K/mcL (0.6-4.6); Lymphocytes % 16.4 %; Mean Corpuscular Hemoglobin 28.3 pg (28.0-33.3); Mean Corpuscular Volume 91.1 fL (83.0-100.0); Mean Platelet Volume 12.3 fL (9.4-12.4); Monocytes # 0.3 K/mcL (0.0-1.3); Neutrophils # 1.9 K/mcL (1.6-8.9); Nucleated Red Blood Cells 1.4 /100 WBC (0); Red Blood Count 3.61 M/mcL (4.19-5.50); Red Cell Distribution Width 15.9 % (11.5-14.5); Segmented Neutrophils % 67.5 %
[2017-11-20 04:16] LABS: Platelet Count 78 K/mcL (140-400)
[2017-11-20 04:44] LABS: BUN/Creatinine Ratio 15 (6-26); Blood Urea Nitrogen 12 mg/dL (8-23); Calcium 8.5 mg/dL (8.6-10.3); Carbon Dioxide 26 mEq/L (23-29); Chloride 107 mEq/L (98-107); Glucose 150 mg/dL (70-105); Osmolality,Calculated 293 (280-300); Potassium 3.9 mEq/L (3.5-5.1); Sodium 140 mEq/L (136-145); eGFR For African Americans > 60 (> 60); eGFR For Non-African Americans > 60 (> 60)
[2017-11-20 04:53] LABS: Hepatitis A Antibody IgM Nonreactive (Nonreactive); Hepatitis C Virus Antibody Nonreactive (Nonreactive)
[2017-11-20 04:58] LABS: Hepatitis B Core IgM Nonreactive (Nonreactive)
[2017-11-20] MEDS ORDERED: Insulin LISPRO 300 UNITS/3 ML VIAL SQ SCH ×2 (07:30→21:00)
[2017-11-20] MEDS: cefTRIAXone 1,000 MG in Water for inj. (sterile) 10 ML IVP SCH (08:04)
[2017-11-20] MEDS: Furosemide 40 MG TABLET PO SCH (08:05)
[2017-11-20 08:09] VITALS: BP 120/67
[2017-11-20] MEDS: Insulin LISPRO 300 UNITS/3 ML VIAL SQ SCH ×2 (08:11→12:49)
--- NOTE | 2017-11-20 09:47 | Discharge Summary ---
<Divine Sanchez - Last Filed: 11/20/17 10:23> Date of Encounter: 11/20/17 Time of Encounter: 09:44 - Discharge Diagnosis (1) Ascites of liver Priority: Primary Status: Acute (2) Right otitis media Priority: Secondary Status: Acute Qualifiers: Otitis media type: suppurative Chronicity: acute Recurrence: not specified as recurrent Spontaneous tympanic membrane rupture: without spontaneous rupture Qualified Code(s): H66.001 - Acute suppurative otitis media without spontaneous rupture of ear drum, right ear (3) Diabetes Priority: Secondary Status: Acute (4) Benign essential HTN Priority: Secondary Status: Acute (5) DVT prophylaxis Priority: Secondary Status: Acute - Discharge Medications Prescriptions: Amoxicillin/Clavulanate [Augmentin] 500 mg PO BIDWM #10 tablet Furosemide [Lasix] 40 mg PO DAILY #30 tablet Omeprazole [PriLOSEC] 40 mg PO DAILY #30 cap Spironolactone [Aldactone] 100 mg PO DAILY #60 tablet Home Medications: Acarbose [Precose] 50 mg PO BID 11/18/17 [History] Ezetimibe/Simvastatin [Vytorin 10-40 mg Tablet] 1 each PO DAILY 11/18/17 [ History] Lisinopril [Zestril] 10 mg PO DAILY 11/18/17 [History] Metformin HCl [Glucophage] 1,000 mg PO BID 11/18/17 [History] Pioglitazone HCl 30 mg PO DAILY 11/18/17 [History] Amoxicillin/Clavulanate [Augmentin] 500 mg PO BIDWM #10 tablet 11/20/17 [Rx] Furosemide [Lasix] 40 mg PO DAILY #30 tablet 11/20/17 [Rx] Omeprazole [PriLOSEC] 40 mg PO DAILY #30 cap 11/20/17 [Rx] Spironolactone [Aldactone] 100 mg PO DAILY #60 tablet 11/20/17 [Rx] Allergies/Adverse Reactions: 3 Allergy/AdvReac Type Severity Reaction Status Date / Time No Known Allergies Allergy Verified 11/18/17 12:07 Procedures/tests Complete & Pending: Procedures Performed prior 72 hours Category Date Time Status IR paracentesis ultrasound [IR] Routine IR 11/19/17 Completed Date of admission: 11/18/17 18:05 Primary care physician: PCP NONE Consults: 11/18/17 18:39 Consult to Interventional Radiology [CONS] Routine Consulting Provider: Radiology Interventional Cols Reason for Consult: Paracentesis of ascites Time Notified: 17:00 Call Completed: Yes Discharging clinician: Kavon Menendez Anticipated date of discharge: 11/20/17 - Patient Status Disposition: Home, Self-Care Condition: Good Functional capacity at discharge: independent ambulation Overall status at discharge: patient is progressing back to baseline - Discharge Instructions Instructions: Cirrhosis (DC), Otitis Media (DC), Ascites (DC) Follow Up With: eKlly Aparicio MD [Partnered Physician] - (Web request entered and office will call patient with date and time. Thank you) Additional Instructions: Start taking Lasix and Aldactone, omeprazole follow-up with G.I. outpatient for a repeat EGD and liver cirrhosis return to hospital should he develop fever, chills, worsening abdominal pain, chest pain, shortness of breath follow up with PCP - Diet and Activity Activity: resume usual activities as tolerated Diet: regular diet Hospital course: Mr. Lee is a 66 year old male with past medical history significant for hypertension and diabetes who presents to the ER on 11/18/17 due to increased abdominal girth. Patient is a poor historian but reports of increased abdominal girth for approximately the last 3 months. In addition patient also reports of lower extremity bilateral edema which has been present for the last week. Patient woke up with abdominal discomfort this morning and decided come to the ER for evaluation. In the ER, CT of the abdomen/pelvis showed cirrhotic liver morphology with features of portal venous hypertension, including large volume abdominal ascites, mesenteric edema, portosystemic collaterals (including paraesophageal and esophageal varices), marked splenomegaly and generalized soft tissue edema. GI was contacted/consult by ER and followed the patient during his stay. IR was also consult and performed paracentesis removing 6 L of fluid. G.I. saw the patient and performed in EGD which demonstrated great 3 esophageal varices that were banded, portal hypertension Gastropathy. Rudy.I. will follow-up with the patient in 4 weeks for another EGD to band more esophageal varices. Hepatic panel with negative. The patient will start taking Aldactone, Lasix, omeprazole. He will follow up with G.I. outpatient for his additional lab testing results and EGD. He was instructed to return to the hospital should he develop worsening abdominal pain, fever, chills. He was instructed to not drink alcohol in high quantities and to not take Tylenol. He is alongside his . He is alert and oriented times 3 with full capacity and he stated clear understanding of the treatment plan. He was also follow up with his PCP. - Time Spent with Patient Total time spent providing and/or coordinating discharge services: Greater than 30 minutes - Constitutional Vitals: Temp Pulse Resp BP Pulse Ox 98.8 F 85 16 120/67 95 11/20/17 07:00 11/20/17 07:00 11/20/17 07:00 11/20/17 08:08 11/20/17 07:00 General appearance: Present: A&O X 3, no acute distress Exam: Gen.: Vitals noted. No acute distress. AAOx3 HEENT: oropharynx clear, Normocephalic, atraumatic Neck: Supple. No adenopathy. Cardiac: RRR, no murmur, +S1/S2 Pulmonary: CTA bilaterally, no wheezes, rales or rhonchi, equal chest expansion Abdomen: soft, minimal tender RUQ, Bowel sounds noted, no guarding MSK: ROM intact, no joint swelling noted Extremities: BLE pedal edema, nontender calf, no cyanosis or clubbing Neuro: A&Ox3, moves all extremities, no focal deficits Psych: Appropriate mood and behavior <Kavon Menendez H - Last Filed: 11/20/17 14:15> Date of Encounter: 11/20/17 Procedures/tests Complete & Pending: Procedures Performed prior 72 hours Category Date Time Status IR paracentesis ultrasound [IR] Routine IR 11/19/17 Completed Date of admission: 11/18/17 18:05 Primary care physician: PCP NONE Consults: 11/18/17 18:39 Consult to Interventional Radiology [CONS] Routine Consulting Provider: Radiology Interventional Cols Reason for Consult: Paracentesis of ascites Time Notified: 17:00 Call Completed: Yes Hospital course: Mr. Lee is a 66 year old male - Time Spent with Patient Total time spent providing and/or coordinating discharge services: - Constitutional Vitals: Temp Pulse Resp BP Pulse Ox 98.8 F 85 16 120/67 95 11/20/17 07:00 11/20/17 07:00 11/20/17 07:00 11/20/17 08:08 11/20/17 07:00 - Attending Attestation Esophageal varices status post banding Continue omeprazole as an outpatient Time spent on this discharge 40 minutes I examined this patient and my medical decision-making was reviewed with the Resident Physician. I agree with the documented findings, disposition and treatment plan as described except to the extent set forth below.
[2017-11-23 08:24] LABS: AFP Tumor Marker Non-Pregnant 1 ng/mL (0-9); ANA IgG by ELISA NONE DETECTED (None Detected); Immunoglobulin G Subclass 1 1000 mg/dL (240-1118); Immunoglobulin G Subclass 2 395 mg/dL (124-549); Immunoglobulin G Subclass 3 90 mg/dL (21-134); Immunoglobulin G Subclass 4 81 mg/dL (1-123)
[2017-11-23 08:51] LABS: Myeloperoxidase Ab 1 AU/mL (0-19); Serine Protease-3 Antibody 0 AU/mL (0-19)
[2017-11-25 10:00] LABS: A1A SZ Specimen WHOLE BLOOD; Alpha-1-Antitrypsin S Allele NEGATIVE; Alpha-1-Antitrypsin Z Allele NEGATIVE
[2017-11-25 13:52] LABS: Alpha-1-Antitrypsin 190 mg/dL (90-200)
== END 2017-11-20 14:42 | disposition home or self-care (01) ==
LOC: 3ANU 12:02 → EMEROO 12:02 → 3ANU 18:21
PROVIDERS: ADMIT Hospitalist; ATTEND Internal Medicine

== ENCOUNTER 2022-06-03 20:34 | Observation (INO) ==
[2022-06-03 23:57] LABS: Basophils % 0.6 %; Eosinophils # 0.1 K/mcL (0.0-0.6); Eosinophils % 2.4 %; Hematocrit 27.2 % (37.5-50.1); Hemoglobin 8.6 g/dL (12.9-16.9); Immature Granulocytes % 5.8 % (0-4); Lymphocytes % 30.6 %; Mean Corpuscular HGB Conc 31.6 g/dL (31.6-35.5); Mean Corpuscular Hemoglobin 30.1 pg (28.0-33.3); Mean Corpuscular Volume 95.1 fL (83.0-100.0); Mean Platelet Volume 11.1 fL (9.4-12.4); Monocytes # 0.3 K/mcL (0.0-1.3); Neutrophils # 1.7 K/mcL (1.6-8.9); Platelet Count 111 K/mcL (140-400); Red Blood Count 2.86 M/mcL (4.19-5.50); Red Cell Distribution Width 18.2 % (11.5-14.5); Segmented Neutrophils % 50.6 %; White Blood Count 3.3 K/mcL (4.3-11.1)
[2022-06-04 00:04] LABS: Calcium 7.9 mg/dL (8.6-10.3); Potassium 5.8 mEq/L (3.5-5.1)
[2022-06-04 00:34] LABS: Platelet Estimate Decreased (Normal)
[2022-06-04 00:35] LABS: Anisocytosis 1+ (Not Present)
[2022-06-04] MEDS: 0.9 % Sodium Chloride 1,000 ML IVC SCH ×2 (01:53→04:08)
[2022-06-04 03:36] LABS: Bacteria,Urine Few per hpf (None-Few); Bilirubin,Urine Negative (Negative); Blood,Urine Moderate (Negative); Budding Yeast,Urine Many per hpf (None Seen); Clarity,Urine Ex.Turbid (Clear); Color,Urine Yellow (Yellow); Glucose,Urine (UA) 300 mg/dL (Normal); Ketones,Urine Negative (Negative); Leukocyte Esterase,Urine Large (Negative); Mucus,Urine Few per lpf (None-Few); Nitrite,Urine Negative (Negative); PH,Urine 6.5 pH Units (5.0-8.0); Protein,Urine >=300 mg/dL (Neg-Trace); RBC,Urine 30-50 per hpf (0-3); Specific Gravity,Urine 1.014 (1.010-1.025); Transitional Epi Cells,Urine Few per hpf (None-Few); Urobilinogen,Urine Normal (Normal); WBC,Urine TNTC per hpf (0-3)
[2022-06-04] MEDS ORDERED: cefTRIAXone 1,000 MG in Water for inj. (sterile) 10 ML IVP ONE (03:51)
[2022-06-04 04:04] LABS: Albumin 2.2 g/dL (3.5-5.7); Albumin/Globulin Ratio 0.6 (1.1-2.2); Bilirubin,Direct 0.1 mg/dL (0.0-0.2); Bilirubin,Indirect 0.2 mg/dL (0.0-1.0); Bilirubin,Total 0.3 mg/dL (0.3-1.0); Globulin 3.6 g/dL (2.4-3.5); Total Protein 5.8 g/dL (6.4-8.9)
[2022-06-04] MEDS ORDERED: Insulin Human Regular 10 UNIT in 0.9 % Sodium Chloride 10 ML IV ONE (05:18)
[2022-06-04 06:29] LABS: Influenza A PCR Negative (Negative); Influenza B PCR Negative (Negative); Resp. Syncytial Virus PCR Negative (Negative)
[2022-06-04 06:34] LABS: SARS-CoV-2 by PCR (In House) Negative (Negative)
[2022-06-04] MEDS ORDERED: hydrALAZINE 25 MG TABLET PO PRN (10:21)
[2022-06-04] MEDS ORDERED: D5% in Water 1,000 ML IVC PRN (10:24)
[2022-06-04] MEDS ORDERED: Dextrose Gel 15 GM/37.5 ML TUBE PO PRN ×2 (10:24)
[2022-06-04] MEDS ORDERED: Sulfamethoxazole/Trimeth DS 1 EACH TABLET PO SCH (10:30)
[2022-06-04] MEDS: Aspirin Enteric Coated 81 MG Tablet PO SCH (11:29)
[2022-06-04] MEDS: CycloSPORINE (SandIMMUNE) 100 MG CAPSULE PO SCH ×2 (11:30→20:58)
[2022-06-04] MEDS: carvediloL 6.25 MG TABLET PO SCH (11:30)
[2022-06-04] MEDS: Insulin LISPRO 300 UNITS/3 ML VIAL SUBQ SCH ×3 (13:25→20:59)
[2022-06-04 13:58] LABS: Hemoglobin 7.6 g/dL (12.9-16.9)
[2022-06-04 14:00] LABS: Hematocrit 23.8 % (37.5-50.1); Immature Platelets 3.3 % (1.1-6.1); Mean Corpuscular HGB Conc 31.9 g/dL (31.6-35.5); Mean Corpuscular Hemoglobin 30.5 pg (28.0-33.3); Mean Corpuscular Volume 95.6 fL (83.0-100.0); Mean Platelet Volume 10.8 fL (9.4-12.4); Red Blood Count 2.49 M/mcL (4.19-5.50); Red Cell Distribution Width 17.9 % (11.5-14.5); White Blood Count 2.7 K/mcL (4.3-11.1)
[2022-06-04 14:13] LABS: Albumin 2.1 g/dL (3.5-5.7); Albumin/Globulin Ratio 0.6 (1.1-2.2); Bilirubin,Total 0.3 mg/dL (0.3-1.0); Calcium 7.5 mg/dL (8.6-10.3); Globulin 3.6 g/dL (2.4-3.5); Magnesium 1.3 mg/dL (1.6-2.6); Potassium 5.1 mEq/L (3.5-5.1); Total Protein 5.7 g/dL (6.4-8.9)
[2022-06-04] MEDS: ursodioL 300 MG CAPSULE PO SCH ×2 (15:40→20:59)
[2022-06-04] MEDS ORDERED: 0.9 % Sodium Chloride 1,000 ML IVC SCH (16:00)
[2022-06-04] MEDS ORDERED: SODIUM ZIRCONIUM CYCLOSILICATE 5 GM POWD.PACK PO ONE (17:24)
[2022-06-04] MEDS ORDERED: Insulin NPH/REG 70/30 100 UNIT/ML (x5UNIT) SUBQ SCH (18:00)
[2022-06-04] MEDS ORDERED: Ondansetron 4 MG/2 ML VIAL IVP PRN (18:58)
[2022-06-04] MEDS ORDERED: Naloxone 0.4 MG/ML INJ IVP PRN (18:58)
[2022-06-05 04:04] LABS: Hemoglobin 7.4 g/dL (12.9-16.9); Mean Corpuscular Hemoglobin 30.2 pg (28.0-33.3); Red Blood Count 2.45 M/mcL (4.19-5.50)
[2022-06-05 04:06] LABS: Hematocrit 23.6 % (37.5-50.1); Immature Platelets 3.1 % (1.1-6.1); Mean Corpuscular HGB Conc 31.4 g/dL (31.6-35.5); Mean Corpuscular Volume 96.3 fL (83.0-100.0); Mean Platelet Volume 10.7 fL (9.4-12.4); Red Cell Distribution Width 17.9 % (11.5-14.5); White Blood Count 2.9 K/mcL (4.3-11.1)
[2022-06-05 04:19] LABS: Calcium 7.4 mg/dL (8.6-10.3); Magnesium 1.6 mg/dL (1.6-2.6); Potassium 5.2 mEq/L (3.5-5.1)
[2022-06-05] MEDS: Insulin LISPRO 300 UNITS/3 ML VIAL SUBQ SCH ×4 (08:26→20:00)
[2022-06-05] MEDS ORDERED: Insulin NPH/REG 70/30 100 UNIT/ML (x5UNIT) SUBQ SCH ×2 (09:00→21:00)
[2022-06-05] MEDS: carvediloL 6.25 MG TABLET PO SCH (09:39)
[2022-06-05] MEDS: CycloSPORINE (SandIMMUNE) 100 MG CAPSULE PO SCH ×2 (09:39→20:09)
[2022-06-05] MEDS: ursodioL 300 MG CAPSULE PO SCH ×3 (09:39→20:00)
[2022-06-05] MEDS: Aspirin Enteric Coated 81 MG Tablet PO SCH (09:39)
[2022-06-05] MEDS ORDERED: SODIUM ZIRCONIUM CYCLOSILICATE 5 GM POWD.PACK PO ONE (12:11)
[2022-06-05] MEDS: Amoxicillin 500 MG CAPSULE PO SCH ×2 (12:54→17:26)
[2022-06-05] MEDS: *HR* Dextrose 50 % in Water (Syg) 50 ML SYRINGE IVP PRN ×2 (14:13→17:37)
[2022-06-05] MEDS: Albumin 25% 25gram/100mL 25 GM/100 ML IV.SOLN IVPB SCH (17:20)
[2022-06-05] MEDS: hydrALAZINE 25 MG TABLET PO SCH (17:26)
[2022-06-06] MEDS: Albumin 25% 25gram/100mL 25 GM/100 ML IV.SOLN IVPB SCH (00:05)
[2022-06-06] MEDS: hydrALAZINE 25 MG TABLET PO SCH (00:05)
[2022-06-06 02:55] LABS: Calcium 7.3 mg/dL (8.6-10.3); Potassium 4.5 mEq/L (3.5-5.1)
[2022-06-06 02:59] LABS: Basophils % 0.5 %; Mean Corpuscular Volume 95.7 fL (83.0-100.0)
[2022-06-06 03:00] LABS: % Iron Saturation 28 % (20-55); Iron 39 mcg/dL (65-175); Transferrin 99 mg/dL (203-362)
[2022-06-06 03:02] LABS: Eosinophils # 0.1 K/mcL (0.0-0.6); Eosinophils % 2.8 %; Immature Granulocytes % 2.4 % (0-4); Immature Platelets 2.9 % (1.1-6.1); Lymphocytes # 0.7 K/mcL (0.6-4.6); Lymphocytes % 30.8 %; Mean Corpuscular HGB Conc 31.8 g/dL (31.6-35.5); Mean Corpuscular Hemoglobin 30.4 pg (28.0-33.3); Mean Platelet Volume 10.8 fL (9.4-12.4); Monocytes # 0.2 K/mcL (0.0-1.3); Monocytes % 8.5 %; Neutrophils # 1.2 K/mcL (1.6-8.9); Red Cell Distribution Width 17.9 % (11.5-14.5); White Blood Count 2.1 K/mcL (4.3-11.1)
[2022-06-06 03:14] LABS: Ferritin 501 ng/mL (20-250)
[2022-06-06 03:15] LABS: Platelet Count 76 K/mcL (140-400)
[2022-06-06 03:20] LABS: Folate 7.8 ng/mL (3.0-16.0)
[2022-06-06 07:00] VITALS: BP 147/67; PULSE 73; TEMP 98.8; O2SAT 98
[2022-06-06] MEDS ORDERED: Insulin NPH/REG 70/30 100 UNIT/ML (x5UNIT) SUBQ SCH (09:00)
== END 2022-06-06 08:00 | disposition short-term general hospital (02) ==
LOC: 2ANU 20:34 → EMEROOARM 20:34 → SUATTDRO 06-04 18:46 → 2ANU 06-04 20:03
PROVIDERS: ADMIT Internal Medicine; ATTEND Internal Medicine